=== PATIENT | male | born 1990 | race African-American/Black ===

== ENCOUNTER 2025-10-16 11:25 | Outpatient (CLI) | payer BC, SELFPAY ==
--- NOTE | ~2025-10-16 | XR_ITS ---
XR shoulder LT min 2V 10/16/2025 12:00 INDICATION: Left shoulder pain PROCEDURE: 4 views left shoulder COMPARISON: No prior studies for comparison. FINDINGS: Fracture, dislocation or subluxation is not identified. The soft tissues appear within normal limits. No foreign bodies are identified. IMPRESSION: 1: NO ACUTE BONE OR JOINT ABNORMALITY IDENTIFIED. Reviewed, dictated and finalized at location O. TRICIAN MANAGER
--- OUTSIDE RECORDS SUMMARY | 2025-10-16 12:12 | XMS_ITS | Clinical Summary ---
Author Organization [facility] Address [facility] [place] [address] Care Team Providers Care Heel Brusher Name Role Phone None, Provider MD Primary Care Provider Unavaila ble Allergies Active Allergy Reactions Criticality Noted Date Comments Penicillins Unknown 10/20/2024 Medications cefdinir (OMNICEF) 300 MG Cap capsule Take 1 capsule (300 mg total) by mouth 2 (two) times daily. 20 capsule 10/20/2024 Active HYDROcodone-radha taminophen (NORCO) 5-325 MG tabletIndicatio ns:Acute Pain < 3 Day Supply Take 1 tablet by mouth every 8 (eight) hours as needed for Pain. Indications: Acute Pain < 3 Day Supply 6 tablet 10/20/2024 Active Family History Relation Status Comments Father Mother Alive Social History Tobacco Use Types Packs/Day Years Used Date Smoking Tobacco: Every Day Cigarettes Smokeless Tobacco: Never Tobacco Cessation:Ready to Q uit: Not Asked; Counseling Given: Not Answered Alcohol Use Standard Drinks/Week Comments Not Currently 0 (1 standard drink = 0.6 oz pur e alcohol) Sex and Gender Information Value Date Recorded Sex Assigned at Not on file Legal Sex Male 1:53 PM RATING SPECIALIST Gender Identity Not on file Sexual Orientation Not on file Last Filed Vital Signs Vital Sign Reading Time Taken Comments Blood Pressure 140/83 10/20/2024 5:46 PM RATING SPECIALIST Pulse 76 10/20/2024 2:06 PM RATING SPECIALIST Temperature 37.6 C (99.7 F) 10/20/2024 2:06 PM RATING SPECIALIST Respiratory Rate 16 10/20/2024 2:06 PM RATING SPECIALIST Oxygen Saturation 97% 10/20/2024 5:45 PM RATING SPECIALIST Inhaled Oxygen Concentration - - Weight 98 kg (216 lb 2 oz) 10/20/2024 2:06 PM CS T Height 182.9 cm (6') 10/20/2024 2:06 PM RATING SPECIALIST Body Mass Index 29.31 10/20/2024 2:06 PM RATING SPECIALIST Plan of Treatment Health Maintenance Due Date Last Done Comments Annual Physical 1992 Hepatitis C 2007 DTaP, Tdap and Td Vaccines ( 1 - Tdap) 2008 Hepatitis B Vaccines (1 of 3 - 19+ 3-dose series) 2008 Pneumococcal Vaccine: Pediat rics (0 to 5 Years) and At-Risk Patients (6 to 49 Years) (1 of 2 - PCV) 2008 HPV Vaccines (1 - 3-dose SCD M series) 2016 COVID-19 Vaccine ( - 2024-2 6 season) 2025 Influenza Adult (#1) 2025 Hepatitis A Vaccines Aged Out No long er eligible based on patient's age to complete this topic Meningococcal B Vaccine Aged Out No l onger eligible based on patient's age to complete this topic Meningococcal Vaccine Aged Out No dulce shaina eligible based on patient's age to complete this topic RSV Immunizations Under 20 Months Aged Out No longer eligible based on patient's age to complete this topic Insurance Care Teams Heel Brusher Relationship Specialty Start Date End Date None, Provider, PCP - General UNKNOWN PHYSICIAN SPECIALTY 10/20/24
== END 2025-10-16 11:26 | disposition home or self-care (01) ==
LOC: CHSIMG 11:32
PROVIDERS: PCP Registered Nurse; Visit Provider Registered Nurse
DX: S49.92XA Unspecified injury of left shoulder and upper arm, initial encounter (principal)
CPT/HCPCS: 73030